=== PATIENT | male | born 2005 | race Caucasian/White ===

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

== ENCOUNTER 2023-01-03 09:00 | Emergency (ER) | payer BC, MEDICAID ==
[2023-01-03] MEDS ORDERED: Sodium Chloride 0.9% 1,000 ML IV SCH ×3 (09:15→11:00)
[2023-01-03 09:19] LABS: BASOPHILS ABSOLUTE AUTO 0.21 K/uL (0.00-0.10); BASOPHILS PERCENT AUTO 0.8 % (0.1-1.3); EOSINOPHILS ABSOLUTE AUTO 0.04 K/uL (0.00-0.40); EOSINOPHILS PERCENT AUTO 0.2 % (0.0-5.4); HEMATOCRIT 54.9 % (38.4-49.7); HEMOGLOBIN 17.3 g/dL (12.9-16.9); IMMATURE GRAN ABSOLUTE AUTO 0.83 K/uL (0.00-0.23); IMMATURE GRAN PERCENT AUTO 3.1 % (0.0-0.7); LYMPHOCYTES ABSOLUTE AUTO 3.75 K/uL (0.8-3.3); LYMPHOCYTES PERCENT AUTO 14.1 % (11.4-47.7); MEAN CORPUSCULAR HEMOGLOBIN 32.9 pg (31.6-35.5); MEAN CORPUSCULAR HGB CONC 31.5 g/dL (31.6-35.5); MEAN CORPUSCULAR VOLUME 104.4 fL (81.4-99.0); NEUTROPHILS ABSOLUTE AUTO 19.32 K/uL (1.0-7.6); NEUTROPHILS PERCENT AUTO 72.8 % (40.0-78.1); PLATELET COUNT,PLT 518 K/uL (130-375); RED BLOOD CELL COUNT 5.26 M/uL (4.14-5.76); WHITE BLOOD CELL COUNT,WBC 26.6 K/uL (3.2-11.0)
[2023-01-03] MEDS ORDERED: Insulin Regular, Human 100 Units/ML 3 ML Vial IVPUSH ONE (09:32)
[2023-01-03] MEDS ORDERED: Glucagon,Human Recombinant 1 MG Vial IM PRN (09:32)
[2023-01-03] MEDS ORDERED: 50% Dextrose in Water 50 ML Syringe IVPUSH PRN (09:32)
[2023-01-03 09:33] LABS: CARBOXYHEMOGLOBIN 1.6 % (0.0-1.6); O2 SATURATION ARTERIAL 97.8 % (95.0-98.0); OXYHEMOGLOBIN 95.3 %
[2023-01-03 09:36] LABS: BASE EXCESS ARTERIAL -30.5 mm/L; BICARBONATE,ARTERIAL 2.3 mmol/L (22.0-26.0); PCO2 ARTERIAL 9.3 mmHg (35.0-42.0)
[2023-01-03 09:39] LABS: A/G RATIO 1.1 (1.2-2.2); ALANINE AMINOTRANSFERASE,ALT 131 U/L (12-78); ALBUMIN 5.2 g/dL (3.4-5.0); ALKALINE PHOSPHATASE 187 U/L (46-116); ASPARTATE AMNIOTRANSFERASE,AST 176 U/L (15-37); BILIRUBIN TOTAL 0.8 mg/dL (0.2-1.0); BLOOD UREA NITROGEN,BUN 28 mg/dL (7-18); CALCIUM 9.4 mg/dL (8.5-10.1); CHLORIDE,CL 97 mmol/L (100-108); CREATININE 1.7 mg/dL (0.8-1.3); EST CRCL DRUG DOSING (CG) 53.81 mL/min; ESTIMATED GFR 59 mL/min (>60); POTASSIUM,K 4.4 mmol/L (3.6-5.2); PROTEIN TOTAL,TP 9.9 g/dL (6.4-8.2); SODIUM,NA 143 mmol/L (140-148)
[2023-01-03 09:43] LABS: ANION GAP 44.4 mmol/L (5.0-14.0); CARBON DIOXIDE,CO2 6 mmol/L (21-32); GLUCOSE RANDOM 604 mg/dL (74-106)
[2023-01-03] MEDS ORDERED: Ondansetron 4 MG/2 ML SDV IVPUSH ONE (09:45)
[2023-01-03 11:18] VITALS: BP 120/64; PULSE 127
[2023-01-03 11:29] LABS: APPEARANCE,URINE CLEAR (CLEAR); BILIRUBIN,URINE SMALL (NEGATIVE); COLOR,URINE YELLOW (YELLOW); GLUCOSE,URINE 500 mg/dL (NEGATIVE); KETONES,URINE >=160 mg/dL (NEGATIVE); LEUKOCYTE ESTERASE,URINE NEGATIVE (NEGATIVE); NITRITE,URINE NEGATIVE (NEGATIVE); OCCULT BLOOD,URINE TRACE-LYSED (NEGATIVE); PROTEIN,URINE 100 mg/dL (NEGATIVE)
[2023-01-03 11:47] LABS: AMORPHOUS SEDIMENT,URINE NOT SEEN; BACTERIA,URINE NOT SEEN; EPITHELIAL CELLS,URINE NOT SEEN; MUCUS,URINE NOT SEEN; RBC,URINE 0-5 (0-5); WBC,URINE 0-5 (0-5)
== END 2023-01-03 11:28 ==
LOC: JP.ED 09:00
DX: E10.10 Type 1 diabetes mellitus with ketoacidosis without coma (principal); J45.909 Unspecified asthma, uncomplicated; Z79.899 Other long term (current) drug therapy
CPT/HCPCS: 36415; 36600; 71045; 80053; 81001; 82803; 82947; 84132; 85025; 96361; 96374; 99283; J1815; J2405; J7030; 99285

== ENCOUNTER 2023-04-11 19:05 | Emergency (ER) | payer BC, MEDICAID ==
[2023-04-11] MEDS ORDERED: Sodium Chloride 0.9% 1,000 ML IV ONE ×2 (19:11→19:26)
[2023-04-11 19:19] LABS: BASOPHILS ABSOLUTE AUTO 0.09 K/uL (0.00-0.10); BASOPHILS PERCENT AUTO 0.4 % (0.1-1.3); EOSINOPHILS ABSOLUTE AUTO 0.01 K/uL (0.00-0.40); HEMATOCRIT 48.6 % (38.4-49.7); HEMOGLOBIN 15.5 g/dL (12.9-16.9); IMMATURE GRAN ABSOLUTE AUTO 0.36 K/uL (0.00-0.23); IMMATURE GRAN PERCENT AUTO 1.7 % (0.0-0.7); LYMPHOCYTES ABSOLUTE AUTO 2.97 K/uL (0.8-3.3); LYMPHOCYTES PERCENT AUTO 14.2 % (11.4-47.7); MEAN CORPUSCULAR HEMOGLOBIN 31.9 pg (31.6-35.5); MEAN CORPUSCULAR HGB CONC 31.9 g/dL (31.6-35.5); MONOCYTES ABSOLUTE AUTO 1.85 K/uL (0.20-0.90); MONOCYTES PERCENT AUTO 8.8 % (3.3-12.6); NEUTROPHILS ABSOLUTE AUTO 15.69 K/uL (1.0-7.6); NEUTROPHILS PERCENT AUTO 74.9 % (40.0-78.1); PLATELET COUNT,PLT 526 K/uL (130-375); RED BLOOD CELL COUNT 4.86 M/uL (4.14-5.76)
[2023-04-11 19:38] LABS: BLOOD UREA NITROGEN,BUN 15 mg/dL (7-18); CALCIUM 8.4 mg/dL (8.5-10.1); CHLORIDE,CL 94 mmol/L (100-108); CREATININE 1.4 mg/dL (0.8-1.3); ESTIMATED GFR 74 mL/min (>60); POTASSIUM,K 5.7 mmol/L (3.6-5.2); SODIUM,NA 135 mmol/L (140-148)
[2023-04-11 19:43] LABS: ANION GAP 41.7 mmol/L (5.0-14.0); GLUCOSE RANDOM 672 mg/dL (74-106)
[2023-04-11 19:44] LABS: CARBON DIOXIDE,CO2 < 5 mmol/L (21-32)
[2023-04-11 20:06] LABS: BICARBONATE,VENOUS 2.5 mmol/L; CARBOXYHEMOGLOBIN 1.6 % (0.0-1.6); O2 SATURATION VENOUS 92.3; OXYHEMOGLOBIN 89.9 %; PCO2 VENOUS 13.4 mm/Hg; PH,VENOUS 6.904 (7.350-7.450); PO2 VENOUS 100 mm/Hg
[2023-04-11 20:07] LABS: BASE EXCESS VENOUS -32.5 mm/L
[2023-04-11] MEDS ORDERED: Sodium Bicarbonate 8.4% 50 MEQ/50 ML Syringe IVPUSH ONE (20:24)
[2023-04-11] MEDS ORDERED: Sodium Chloride 0.9% 10 ML Syringe FLUSH PRN (20:25)
[2023-04-11 20:38] LABS: MAGNESIUM 2.4 mg/dL (1.8-2.4); PHOSPHORUS 7.6 mg/dL (2.5-4.9)
[2023-04-11 21:58] VITALS: BP 150/88; PULSE 124
== END 2023-04-11 21:58 | disposition other institution (70) ==
LOC: JP.ED 19:05
DX: E10.10 Type 1 diabetes mellitus with ketoacidosis without coma (principal)
CPT/HCPCS: 36415; 70450; 80048; 82009; 82803; 82947; 83605; 83735; 84100; 85025; 87040; 96361; 96374; 99285; J1815; J3490; J7030

== ENCOUNTER 2024-06-22 07:48 | Day surgery (SDC) | payer OTHER, BC ==
[~2024-06-22 07:48] MED LIST: Midazolam 1 MG/ML 2 ML SDV ONE; Propofol 200 MG/20 ML SDV ONE; fentaNYL 50 MCG/ML SDV ONE
[2024-06-22] MEDS: Lactated Ringers 1,000 ML IV SCH (08:40)
[2024-06-22 11:11] VITALS: BP 120/77; PULSE 82
== END 2024-06-22 10:15 | disposition home or self-care (01) ==
LOC: JP.SDS 07:48
PROVIDERS: ATTEND Surgery
DX: R10.9 Unspecified abdominal pain (principal)
CPT/HCPCS: 45330; J2250; J2704; J3010; J7120

== ENCOUNTER 2024-07-11 18:32 | Observation (INO) | payer OTHER, BC ==
[2024-07-11] MEDS ORDERED: GLUCAGON 3 MG NS PRN (19:41)
[2024-07-11] MEDS ORDERED: Cetirizine 10 MG Tab PO PRN (19:41)
[2024-07-11] MEDS ORDERED: Sodium Chloride 0.9% 10 ML Syringe FLUSH PRN (20:57)
[2024-07-11] MEDS: Magnesium Hydroxide 400 MG/5 ML Susp 30 ML Cup PO ONE (21:11)
[2024-07-11] MEDS: Mupirocin Oint 22 GM Tube TOP SCH (23:26)
[2024-07-12] MEDS: Insulin Lispro 100 Units/ML 3 ML Vial SUBCUT ONE (03:53)
[2024-07-12] MEDS ORDERED: Amylase/Lipase/Protease 12,000 Unit Cap.CR PO PRN (07:59)
[2024-07-12] MEDS ORDERED: Glucagon,Human Recombinant 1 MG Vial IM PRN (08:05)
[2024-07-12] MEDS: [UNRECOGNIZED DRUG - OTHER] SQ SCH (08:07)
[2024-07-12] MEDS: Bisacodyl 5 MG Tab PO ONE ×2 (09:11→20:07)
[2024-07-12] MEDS: Polyethylene Glycol 3350 Powder 238 GM Bot PO ONE (11:27)
[2024-07-12] MEDS: Lactulose Soln 10 GM/15 ML 15 ML UD Cup PO ONE (16:17)
[2024-07-12] MEDS: Polyethylene Glycol 3350 Powder 119 GM Bottle PO ONE (17:07)
[2024-07-13] MEDS: Sodium Chloride 0.9% 1,000 ML IV SCH (00:18)
[2024-07-13] MEDS ORDERED: fentaNYL 50 MCG/ML SDV ONE (06:43)
[2024-07-13] MEDS ORDERED: Propofol 200 MG/20 ML SDV ONE (06:43)
[2024-07-13] MEDS ORDERED: Midazolam 1 MG/ML 2 ML SDV ONE (06:43)
[2024-07-13] MEDS ORDERED: Lactated Ringers 1,000 ML ONE (07:50)
[2024-07-13] MEDS ORDERED: Amylase/Lipase/Protease 12,000 Unit Cap.CR PO SCH (08:00)
[2024-07-13 09:11] VITALS: BP 127/88
[2024-07-13 09:27] VITALS: PULSE 86
== END 2024-07-13 09:30 | disposition home or self-care (01) ==
LOC: JP.MS 18:32
PROVIDERS: ADMIT Surgery; ATTEND Surgery
DX: R19.4 Change in bowel habit (principal); E11.9 Type 2 diabetes mellitus without complications
CPT/HCPCS: 00811; 45380; 88305; A9270; J2250; J2704; J3010; J7030; J7120

== ENCOUNTER 2025-07-31 14:52 | Emergency (ER) | payer BC, OTHER ==
[2025-07-31] MEDS ORDERED: 50% Dextrose in Water 50 ML Syringe IVPUSH PRN (15:47)
[2025-07-31 16:00] LABS: BASOPHILS ABSOLUTE AUTO 0.04 K/uL (0.00-0.10); BASOPHILS PERCENT AUTO 0.4 % (0.1-1.3); EOSINOPHILS ABSOLUTE AUTO 0.00 K/uL (0.00-0.40); EOSINOPHILS PERCENT AUTO 0.0 % (0.0-5.4); IMMATURE GRAN ABSOLUTE AUTO 0.08 K/uL (0.00-0.23); IMMATURE GRAN PERCENT AUTO 0.7 % (0.0-0.7); LYMPHOCYTES ABSOLUTE AUTO 1.43 K/uL (0.8-3.3); LYMPHOCYTES PERCENT AUTO 12.8 % (11.4-47.7); MONOCYTES ABSOLUTE AUTO 1.49 K/uL (0.20-0.90); MONOCYTES PERCENT AUTO 13.4 % (3.3-12.6); NEUTROPHILS ABSOLUTE AUTO 8.11 K/uL (1.0-7.6); NEUTROPHILS PERCENT AUTO 72.7 % (40.0-78.1); PLATELET COUNT,PLT 365 K/uL (130-375); RED BLOOD CELL COUNT 5.08 M/uL (4.14-5.76); WHITE BLOOD CELL COUNT,WBC 11.2 K/uL (3.2-11.0)
[2025-07-31 16:06] LABS: CORONAVIRUS COVID-19 NAA NEGATIVE (NEGATIVE); INFLUENZA A NAA POSITIVE (NEGATIVE); INFLUENZA B NAA NEGATIVE (NEGATIVE); RESPIRATORY SYNCYTIAL VIR NAA NEGATIVE (NEGATIVE)
[2025-07-31 16:22] LABS: ALANINE AMINOTRANSFERASE,ALT 463 U/L (12-78); ASPARTATE AMNIOTRANSFERASE,AST 258 U/L (15-37); BILIRUBIN TOTAL 0.7 mg/dL (0.2-1.0); BLOOD UREA NITROGEN,BUN 29 mg/dL (7-18); CHLORIDE,CL 91 mmol/L (100-108); CREATININE 1.5 mg/dL (0.8-1.3); EST CRCL DRUG DOSING (CG) 65.56 mL/min; ESTIMATED GFR 67 mL/min (>60); GLUCOSE RANDOM 370 mg/dL (74-106); POTASSIUM,K 4.3 mmol/L (3.6-5.2); PROTEIN TOTAL,TP 8.5 g/dL (6.4-8.2); SODIUM,NA 132 mmol/L (140-148)
[2025-07-31] MEDS: Insulin Regular, Human 100 Units/ML 10 ML Vial IVPUSH ONE (16:24)
[2025-07-31 16:26] LABS: A/G RATIO 0.9 (1.2-2.2); CARBON DIOXIDE,CO2 15 mmol/L (21-32)
[2025-07-31 18:54] LABS: BLOOD UREA NITROGEN,BUN 26.0 mg/dL (7-18); CARBON DIOXIDE,CO2 18.0 mmol/L (21-32); CHLORIDE,CL 97.0 mmol/L (100-108); CREATININE 1.2 mg/dL (0.8-1.3); EST CRCL DRUG DOSING (CG) 81.94 mL/min; ESTIMATED GFR 88.0 mL/min (>60); GLUCOSE RANDOM 231.0 mg/dL (74-106); POTASSIUM,K 4.2 mmol/L (3.6-5.2); SODIUM,NA 134.0 mmol/L (140-148)
[2025-07-31 19:30] VITALS: BP 118/71; PULSE 104
== END 2025-07-31 19:38 | disposition home or self-care (01) ==
LOC: JP.ED 14:52
DX: J10.1 Influenza due to other identified influenza virus with other respiratory manifestations (principal); E10.10 Type 1 diabetes mellitus with ketoacidosis without coma; Z79.899 Other long term (current) drug therapy; Z79.4 Long term (current) use of insulin; Z86.16 Personal history of COVID-19
CPT/HCPCS: 36415; 71046; 80048; 80053; 82009; 83690; 85025; 87637; 87651; 96360; 96361; 99285; A9270; J7030